=== PATIENT | female | born 1940 | race Caucasian/White ===

== ENCOUNTER → 2017-08-18 12:12 | Outpatient (CLI) | payer SELFPAY ==
--- NOTE | 2017-08-18 12:12 | DT_ITS ---
This patient was seen during an EMR downtime August 17, 2017 - August 24, 2017. This patient may have a combination of paper and electronic documentation or all paper documentation. All documentation is viewable within the e-chart portion of [facility] for each patient visit.
--- NOTE | 2017-08-18 12:30 | US_ITS ---
PROCEDURE: ULTRASOUND GUIDED PARACENTESIS CLINICAL HISTORY: Female, 76 years old. ASCITES CONSENT: The risks, benefits and alternatives to the procedure were explained to the patient, and the patient agreed to the procedure and signed the consent. SEDATION: Local Anesthesia STERILE BARRIER TECHNIQUE: The following sterile barrier precautions were used during the procedure: hand hygiene; use of 2% chlorhexidine aseptic; use of a cap, mask, sterile gown, sterile gloves, sterile full body drape, and a large sterile sheet. PROCEDURE/TECHNIQUE: The risks, benefits, and alternatives to the procedure were explained to patient, and the patient agreed to the procedure and signed a consent form for the procedure. TECHNIQUE: Under the ultrasound guidance using sterile technique and after infiltration of the skin and subcutaneous soft tissues with 10 mL of lidocaine 1% a 5 Tamazight drainage catheter is introduced in the lower part of the abdomen. 6600 mL of fluid were removed sample sent to lab for evaluation. The patient tolerated the procedure there was no immediate complication. FINDINGS: FLUID PRE-PROCEDURE There is posterior enhancement. The findings appear anechoic. There is no loculation. Volume measurement: 6600 ml. FLUID POST-PROCEDURE Amount of fluid drained: 6600 ml. US/Paracentesis with US IMPRESSION: Successful ultrasound-guided paracentesis. Electronically Signed: Lilo Manuel MD at 13:53 EDT Tel , Service support ,
== END ==
PROVIDERS: Family Provider Family Medicine; PCP Family Medicine; Visit Provider Internal Medicine Gastroenterology
DX: R18.8 Other ascites (principal)
CPT/HCPCS: 49083

== ENCOUNTER → 2017-10-21 14:29 | Outpatient (CLI) | payer SELFPAY ==
--- NOTE | 2017-10-21 14:47 | US_ITS ---
PROCEDURE: ULTRASOUND GUIDED PARACENTESIS CLINICAL HISTORY: Female, 77 years old. Ascites. CONSENT: Yes Time-Out Called: Yes. Consent form signed: Yes. PT-PTT Levels Checked: Yes. SEDATION: Local Anesthesia STERILE BARRIER TECHNIQUE: The following sterile barrier precautions were used during the procedure: hand hygiene; use of 2% chlorhexidine aseptic; use of sterile gloves and a large sterile sheet. PROCEDURE/TECHNIQUE: The risks, benefits and alternatives to the procedure were explained to patient, and the patient agreed to the procedure and signed a informed written and witnessed consent form for the procedure. TECHNIQUE: Under the ultrasound guidance using sterile technique and after infiltration of the skin and subcutaneous soft tissues with 10 mL of lidocaine 2%, a 5 Tamazight drainage catheter was introduced in the lower part of the abdomen. 7950 mL of fluid were removed. The patient tolerated the procedure there was no immediate complication. FLUID POST-PROCEDURE Amount of fluid drained: 7950 ml. US/Paracentesis with US IMPRESSION: Successful paracentesis as described. Electronically Signed: Paco Forman, at 18:01 EDT Tel , Service support ,
[2017-10-21 15:01] LABS: International Normalized Ratio 1.2
[2017-10-21 15:02] LABS: Partial Thromboplast Time 30.3 Seconds (24.1-36.2)
[2017-10-21 15:03] LABS: Platelet Count 89 K/mm3 (150-450)
[2017-10-21 16:00] VITALS: BP 124/73; PULSE 88; RESP 18; O2SAT 98
[2017-10-21 16:20] VITALS: BP 141/57; PULSE 89; RESP 18; O2SAT 97
[2017-10-21 16:35] VITALS: BP 127/73; PULSE 84; RESP 18; O2SAT 98
[2017-10-21 16:50] VITALS: BP 127/73; PULSE 88; RESP 16; O2SAT 97
[2017-10-21 17:05] VITALS: BP 141/56; PULSE 89; RESP 16; O2SAT 96
== END ==
PROVIDERS: Family Provider Family Medicine; PCP Family Medicine; Visit Provider Internal Medicine Gastroenterology
DX: R18.8 Other ascites (principal)
CPT/HCPCS: 36415; 49083; 85049; 85610; 85730

== ENCOUNTER → 2017-12-02 10:34 | Outpatient (CLI) | payer MEDICARE, SELFPAY ==
--- NOTE | 2017-12-02 10:38 | US_ITS ---
PROCEDURE: Ultrasound guided paracentesis. DATE OF EXAMINATION: December 02, 2017. INDICATION: Female, 77 years old. Ascites. PHYSICIAN: Florentino Barragan M.D. TECHNIQUE: The risks, benefits, and alternatives to the procedure were explained to the patient. The specific risks of bleeding, infection, and damage to bowel were detailed and accepted. Witnessed informed consent was obtained. The abdomen was ultrasonographically surveyed. An appropriate pocket of fluid was identified at the right lower quadrant. The skin were cleaned and prepped in the usual sterile fashion. Using ultrasound guidance, the peritoneal cavity was accessed with a 5-Dutch paracentesis needle/catheter system. The trocar was removed. A total of 8100 ml of kulwinder-colored fluid were removed from the peritoneal cavity. The catheter was removed and a sterile dressing was applied. The procedure was well tolerated. US/Paracentesis with US IMPRESSION: Ultrasound guided paracentesis. Electronically Signed: Florentino Barragan MD at 14:07 EDT Tel [phone], Service support ,
== END ==
PROVIDERS: Family Provider Family Medicine; PCP Family Medicine; Visit Provider Family Medicine
DX: R18.8 Other ascites (principal)
CPT/HCPCS: 49083

== ENCOUNTER → 2018-01-22 09:57 | Outpatient (CLI) | payer MEDICARE, SELFPAY ==
--- NOTE | 2018-01-22 10:07 | US_ITS ---
PROCEDURE: Ultrasound guided paracentesis. DATE OF EXAMINATION: January 22, 2018.. INDICATION: Female, 77 years old. Ascites. PHYSICIAN: Florentino Barragan M.D. TECHNIQUE: The risks, benefits, and alternatives to the procedure were explained to the patient. The specific risks of bleeding, infection, and damage to bowel were detailed and accepted. Witnessed informed consent was obtained. The abdomen was ultrasonographically surveyed. An appropriate pocket of fluid was identified at the right lower quadrant. The skin were cleaned and prepped in the usual sterile fashion. Using ultrasound guidance, the peritoneal cavity was accessed with a 5-Senegalese paracentesis needle/catheter system. The trocar was removed. A total of 6250 ml of kulwinder-colored fluid were removed from the peritoneal cavity. The catheter was removed and a sterile dressing was applied. The procedure was well tolerated. US/Paracentesis with US IMPRESSION: Ultrasound guided paracentesis. Electronically Signed: Florentino Barragan MD at 13:49 EST Tel [phone], Service support ,
[2018-01-22 10:39] VITALS: BP 151/62; PULSE 83; RESP 18; O2SAT 98; BMI 50.3
[2018-01-22 10:55] VITALS: BP 129/65; PULSE 85; RESP 18; O2SAT 96
== END ==
PROVIDERS: Family Provider Family Medicine; PCP Family Medicine; Referring Provider Family Medicine; Visit Provider Family Medicine
DX: R18.8 Other ascites (principal)
CPT/HCPCS: 49083

== ENCOUNTER → 2018-03-23 07:10 | Outpatient (CLI) | payer SELFPAY ==
--- NOTE | 2018-03-23 07:14 | US_ITS ---
PROCEDURE: Ultrasound guided paracentesis. DATE OF EXAMINATION: March 23, 2018. INDICATION: Female, 77 years old. Ascites. PHYSICIAN: Florentino Barragan M.D. TECHNIQUE: The risks, benefits, and alternatives to the procedure were explained to the patient. The specific risks of bleeding, infection, and damage to bowel were detailed and accepted. Witnessed informed consent was obtained. The abdomen was ultrasonographically surveyed. An appropriate pocket of fluid was identified at the right lower quadrant. The skin were cleaned and prepped in the usual sterile fashion. Using ultrasound guidance, the peritoneal cavity was accessed with a 5-Frisian paracentesis needle/catheter system. The trocar was removed. A total of 8950 ml of kulwinder-colored fluid were removed from the peritoneal cavity. The catheter was removed and a sterile dressing was applied. The procedure was well tolerated. US/Paracentesis with US IMPRESSION: Ultrasound guided paracentesis. Electronically Signed: Florentino Barragan MD at 10:43 EST Tel [phone], Service support ,
[2018-03-23 09:20] VITALS: BP 122/61; BP 133/77; BP 145/80; PULSE 91; PULSE 92; PULSE 94; RESP 18; O2SAT 95; O2SAT 96
== END ==
PROVIDERS: Family Provider Family Medicine; PCP Family Medicine; Referring Provider Family Medicine; Visit Provider Family Medicine
DX: R18.8 Other ascites (principal)
CPT/HCPCS: 49083

== ENCOUNTER → 2018-06-03 07:54 | Outpatient (CLI) | payer MEDICARE, SELFPAY ==
--- NOTE | 2018-06-03 07:58 | US_ITS ---
PROCEDURE: ULTRASOUND GUIDED PARACENTESIS CLINICAL HISTORY: Female, 77 years old. ASCITES CONSENT: The risks, benefits and alternatives to the procedure were explained to the patient, and the patient agreed to the procedure and signed the consent. SEDATION: Local Anesthesia STERILE BARRIER TECHNIQUE: The following sterile barrier precautions were used during the procedure: hand hygiene; use of 2% chlorhexidine aseptic; use of a cap, mask, sterile gown, sterile gloves, sterile full body drape, and a large sterile sheet. PROCEDURE/TECHNIQUE: The risks, benefits, and alternatives to the procedure were explained to patient, and the patient agreed to the procedure and signed a consent form for the procedure. TECHNIQUE: Under the ultrasound guidance using sterile technique and after infiltration of the skin and subcutaneous soft tissues with 10 mL of lidocaine 1% a 5 Hungarian drainage catheter is introduced in the lower part of the abdomen. 7550 mL of fluid were removed sample sent to lab for evaluation. The patient tolerated the procedure there was no immediate complication. FINDINGS: FLUID PRE-PROCEDURE There is posterior enhancement. The findings appear anechoic. There is no loculation. FLUID POST-PROCEDURE Amount of fluid drained: 7550 ml. US/Paracentesis with US IMPRESSION: Successful ultrasound-guided paracentesis. Electronically Signed: Lilo Manuel, at 12:24 EDT Tel , Service support ,
[2018-06-03 08:37] VITALS: BP 122/74; BP 132/65; BP 145/88; PULSE 94; PULSE 95; PULSE 98; RESP 16; RESP 18; O2SAT 93; O2SAT 94
== END ==
PROVIDERS: Family Provider Family Medicine; PCP Family Medicine; Referring Provider Family Medicine; Visit Provider Family Medicine
DX: R18.8 Other ascites (principal)
CPT/HCPCS: 49083

== ENCOUNTER → 2018-09-06 | Outpatient (CLI) | payer MEDICARE, SELFPAY ==
--- NOTE | 2018-09-06 14:48 | US_ITS ---
PROCEDURE: ULTRASOUND GUIDED PARACENTESIS CLINICAL HISTORY: Female, 78 years old. CONSENT: Time-Out Called: Yes. Consent form signed: Yes. PT-PTT Levels Checked: Yes. SEDATION: None TECHNIQUE: FINDINGS: FLUID PRE-PROCEDURE Under ultrasound guidance and following proper antiseptic preparation and local anesthesia a 6 Georgian draining catheter was inserted in the right lower quadrant, 9000ml of Edie color fluid aspirated. The patient tolerated the procedure well. US/Paracentesis with US IMPRESSION: Uneventful paracentesis Electronically Signed: Teo Garcia, at 8:54 EDT Tel , Service support ,
[2018-09-06 15:30] VITALS: BP 131/55; BP 142/66; BP 157/72; PULSE 97; PULSE 99; RESP 16; O2SAT 92; O2SAT 94
== END | disposition home or self-care (01) ==
PROVIDERS: Family Provider Family Medicine; PCP Family Medicine; Referring Provider Family Medicine; Visit Provider Family Medicine
DX: K74.60 Unspecified cirrhosis of liver (principal)
CPT/HCPCS: 49083

== ENCOUNTER → 2018-09-15 | Outpatient (CLI) | payer MEDICARE, SELFPAY ==
[2018-09-15 12:43] VITALS: BP 138/77; BP 139/67; BP 141/78; BP 146/84; BP 158/71; PULSE 87; PULSE 88; PULSE 90; PULSE 92; PULSE 94; RESP 18; O2SAT 94; O2SAT 98
--- NOTE | 2018-09-15 12:51 | US_ITS ---
PROCEDURE: Ultrasound guided paracentesis. DATE OF EXAMINATION: Right 2018. INDICATION: Female, 78 years old. Ascites. PHYSICIAN: Florentino Barragan M.D. TECHNIQUE: The risks, benefits, and alternatives to the procedure were explained to the patient. The specific risks of bleeding, infection, and damage to bowel were detailed and accepted. Witnessed informed consent was obtained. The abdomen was ultrasonographically surveyed. An appropriate pocket of fluid was identified at the right lower quadrant. The skin were cleaned and prepped in the usual sterile fashion. Using ultrasound guidance, the peritoneal cavity was accessed with a 5-Hebrew paracentesis needle/catheter system. The trocar was removed. A total of 8150 ml of kulwinder-colored fluid were removed from the peritoneal cavity. The catheter was removed and a sterile dressing was applied. The procedure was well tolerated. US/Paracentesis with US IMPRESSION: Ultrasound guided paracentesis. Electronically Signed: Florentino Barragan, at 14:47 EDT , Service support ,
--- NOTE | 2018-09-15 15:41 | NURSING ---
JANELLE ZAYAS CALLED [facility] TO ENSURE PT IS ABLE TO COME 09/24/18 AT 1015 FOR 1030 APPOINTMENT. MARY AT [facility] STATES SHE WILL MAKE SURE THAT PT HAS TRANSPORTATION.
== END | disposition home or self-care (01) ==
PROVIDERS: Family Provider Family Medicine; PCP Family Medicine; Referring Provider Family Medicine; Visit Provider Family Medicine
DX: K74.60 Unspecified cirrhosis of liver (principal)
CPT/HCPCS: 49083

== ENCOUNTER → 2018-09-24 | Outpatient (CLI) | payer MEDICARE, SELFPAY ==
--- NOTE | 2018-09-24 10:26 | US_ITS ---
PROCEDURE: Ultrasound guided paracentesis. DATE OF EXAMINATION: September 24, 2018. INDICATION: Female, 78 years old. Ascites. PHYSICIAN: Florentino Barragan M.D. TECHNIQUE: The risks, benefits, and alternatives to the procedure were explained to the patient. The specific risks of bleeding, infection, and damage to bowel were detailed and accepted. Witnessed informed consent was obtained. The abdomen was ultrasonographically surveyed. An appropriate pocket of fluid was identified at the right lower quadrant. The skin were cleaned and prepped in the usual sterile fashion. Using ultrasound guidance, the peritoneal cavity was accessed with a 5-Norwegian paracentesis needle/catheter system. The trocar was removed. A total of 5400 ml of kulwinder-colored fluid were removed from the peritoneal cavity. The catheter was removed and a sterile dressing was applied. The procedure was well tolerated. US/Paracentesis with US IMPRESSION: Ultrasound guided paracentesis. Electronically Signed: Florentino Barragan, at 12:13 EDT , Service support ,
[2018-09-24 11:31] VITALS: BP 127/67; BP 128/58; BP 129/67; PULSE 102; PULSE 112; PULSE 97; RESP 16; O2SAT 97; O2SAT 98
== END | disposition home or self-care (01) ==
LOC: US 10:22
PROVIDERS: Family Provider Family Medicine; PCP Family Medicine; Referring Provider Family Medicine; Visit Provider Family Medicine
DX: K74.60 Unspecified cirrhosis of liver (principal)
CPT/HCPCS: 49083

== ENCOUNTER → 2018-10-19 | Outpatient (CLI) | payer MEDICARE, SELFPAY ==
[2018-10-19 15:21] LABS: International Normalized Ratio 1.2; Prothrombin Time (Protime)PT. 14.6 SECONDS (11.7-14.9)
[2018-10-19 15:22] LABS: Partial Thromboplast Time 32.4 Seconds (24.1-36.2)
== END | disposition home or self-care (01) ==
LOC: US 14:59 → LAB 15:30
PROVIDERS: Family Provider Family Medicine; PCP Family Medicine; Referring Provider Family Medicine; Visit Provider Family Medicine
DX: K74.60 Unspecified cirrhosis of liver (principal)
CPT/HCPCS: 36415; 85610; 85730

== ENCOUNTER → 2018-10-20 | Outpatient (CLI) | payer MEDICARE, SELFPAY ==
--- NOTE | 2018-10-20 14:32 | US_ITS ---
PROCEDURE: Ultrasound guided paracentesis. DATE OF EXAMINATION: October 20, 2018.. INDICATION: Female, 78 years old. Ascites. PHYSICIAN: Florentino Barragan M.D. TECHNIQUE: The risks, benefits, and alternatives to the procedure were explained to the patient. The specific risks of bleeding, infection, and damage to bowel were detailed and accepted. Witnessed informed consent was obtained. The abdomen was ultrasonographically surveyed. An appropriate pocket of fluid was identified at the right lower quadrant. The skin were cleaned and prepped in the usual sterile fashion. Using ultrasound guidance, the peritoneal cavity was accessed with a 5-Chinese paracentesis needle/catheter system. The trocar was removed. A total of 9000 ml of kulwinder-colored fluid were removed from the peritoneal cavity. The catheter was removed and a sterile dressing was applied. The procedure was well tolerated. US/Paracentesis with US IMPRESSION: Ultrasound guided paracentesis. Electronically Signed: Florentino Barragan, at 8:22 EDT , Service support ,
[2018-10-20 15:38] VITALS: BP 131/60; BP 137/66; PULSE 95; RESP 16; O2SAT 98
== END | disposition home or self-care (01) ==
PROVIDERS: Family Provider Family Medicine; PCP Family Medicine; Referring Provider Family Medicine; Visit Provider Family Medicine
DX: K74.60 Unspecified cirrhosis of liver (principal)
CPT/HCPCS: 49083

== ENCOUNTER → 2018-11-11 | Outpatient (CLI) | payer MEDICARE, MEDICAID, SELFPAY ==
--- NOTE | 2018-11-11 12:28 | US_ITS ---
PROCEDURE: Ultrasound guided paracentesis. DATE OF EXAMINATION: November 11, 2018. INDICATION: Female, 78 years old. Ascites. PHYSICIAN: Florentino Barragan M.D. TECHNIQUE: The risks, benefits, and alternatives to the procedure were explained to the patient. The specific risks of bleeding, infection, and damage to bowel were detailed and accepted. Witnessed informed consent was obtained. The abdomen was ultrasonographically surveyed. An appropriate pocket of fluid was identified at the right lower quadrant. The skin were cleaned and prepped in the usual sterile fashion. Using ultrasound guidance, the peritoneal cavity was accessed with a 5-Telugu paracentesis needle/catheter system. The trocar was removed. A total of 9000 ml of kulwinder-colored fluid were removed from the peritoneal cavity. The catheter was removed and a sterile dressing was applied. The procedure was well tolerated. US/Paracentesis with US IMPRESSION: Ultrasound guided paracentesis. Electronically Signed: Florentino Barragan, at 13:57 EDT , Service support ,
[2018-11-11 14:01] VITALS: BP 136/78; BP 140/74; BP 153/93; PULSE 97; PULSE 99; RESP 16; RESP 18; O2SAT 100; O2SAT 98
== END | disposition home or self-care (01) ==
PROVIDERS: Family Provider Family Medicine; PCP Family Medicine; Referring Provider Family Medicine; Visit Provider Family Medicine
DX: K74.60 Unspecified cirrhosis of liver (principal)
CPT/HCPCS: 49083

== ENCOUNTER → 2018-11-22 13:02 | Outpatient (CLI) | payer MEDICARE, SELFPAY ==
--- NOTE | 2018-11-22 13:06 | US_ITS ---
PROCEDURE: Ultrasound guided paracentesis. DATE OF EXAMINATION: November 22, 2018. INDICATION: Female, 78 years old. Ascites. PHYSICIAN: Florentino Barragan M.D. TECHNIQUE: The risks, benefits, and alternatives to the procedure were explained to the patient. The specific risks of bleeding, infection, and damage to bowel were detailed and accepted. Witnessed informed consent was obtained. The abdomen was ultrasonographically surveyed. An appropriate pocket of fluid was identified at the right lower quadrant. The skin were cleaned and prepped in the usual sterile fashion. Using ultrasound guidance, the peritoneal cavity was accessed with a 5-Icelandic paracentesis needle/catheter system. The trocar was removed. A total of 7900 ml of kulwinder-colored fluid were removed from the peritoneal cavity. The catheter was removed and a sterile dressing was applied. The procedure was well tolerated. US/Paracentesis with US IMPRESSION: Ultrasound guided paracentesis. Electronically Signed: Florentino Barragan, at 15:06 EDT , Service support ,
[2018-11-22 13:51] VITALS: BP 128/63; BP 131/74; BP 132/67; BP 138/68; BP 139/62; BP 146/71; BP 150/60; PULSE 93; PULSE 94; PULSE 95; PULSE 97; RESP 16; RESP 18; O2SAT 100; O2SAT 96; O2SAT 99
== END ==
PROVIDERS: Family Provider Family Medicine; PCP Family Medicine; Referring Provider Family Medicine; Visit Provider Family Medicine
DX: K74.60 Unspecified cirrhosis of liver (principal)
CPT/HCPCS: 49083

== ENCOUNTER → 2018-12-08 14:10 | Outpatient (CLI) | payer MEDICARE, SELFPAY ==
--- NOTE | 2018-12-08 14:16 | US_ITS ---
PROCEDURE: Ultrasound guided paracentesis. DATE OF EXAMINATION: December 08, 2018. INDICATION: Female, 78 years old. Ascites. PHYSICIAN: Florentino Barragan M.D. TECHNIQUE: The risks, benefits, and alternatives to the procedure were explained to the patient. The specific risks of bleeding, infection, and damage to bowel were detailed and accepted. Witnessed informed consent was obtained. The abdomen was ultrasonographically surveyed. An appropriate pocket of fluid was identified at the right lower quadrant. The skin were cleaned and prepped in the usual sterile fashion. Using ultrasound guidance, the peritoneal cavity was accessed with a 5-Yemeni paracentesis needle/catheter system. The trocar was removed. A total of 7900 ml of kulwinder-colored fluid were removed from the peritoneal cavity. The catheter was removed and a sterile dressing was applied. The procedure was well tolerated. US/Paracentesis with US IMPRESSION: Ultrasound guided paracentesis. Electronically Signed: Florentino Barragan, at 15:52 EDT , Service support ,
[2018-12-08 15:49] VITALS: BP 103/63; BP 120/59; BP 123/87; PULSE 100; PULSE 101; RESP 16; O2SAT 100; O2SAT 98
== END ==
PROVIDERS: Family Provider Family Medicine; PCP Family Medicine; Referring Provider Family Medicine; Visit Provider Family Medicine
DX: K74.60 Unspecified cirrhosis of liver (principal)
CPT/HCPCS: 49083

== ENCOUNTER → 2018-12-15 10:09 | Outpatient (CLI) | payer SELFPAY ==
--- NOTE | 2018-12-15 10:11 | US_ITS ---
PROCEDURE: Ultrasound guided paracentesis. DATE OF EXAMINATION: December 15, 2018. INDICATION: Female, 78 years old. Ascites. PHYSICIAN: Florentino Barragan M.D. TECHNIQUE: The risks, benefits, and alternatives to the procedure were explained to the patient. The specific risks of bleeding, infection, and damage to bowel were detailed and accepted. Witnessed informed consent was obtained. The abdomen was ultrasonographically surveyed. An appropriate pocket of fluid was identified at the right lower quadrant. The skin were cleaned and prepped in the usual sterile fashion. Using ultrasound guidance, the peritoneal cavity was accessed with a 5-Macedonian paracentesis needle/catheter system. The trocar was removed. A total of 3750 ml of kulwinder-colored fluid were removed from the peritoneal cavity. The catheter was removed and a sterile dressing was applied. The procedure was well tolerated. US/Paracentesis with US IMPRESSION: Ultrasound guided paracentesis. Electronically Signed: Florentino Barragan, at 11:27 EDT , Service support ,
[2018-12-15 10:37] VITALS: BP 128/65; BP 138/55; PULSE 100; PULSE 101; RESP 18; O2SAT 98; O2SAT 99
== END ==
PROVIDERS: Family Provider Family Medicine; PCP Family Medicine; Referring Provider Family Medicine; Visit Provider Family Medicine
DX: K74.60 Unspecified cirrhosis of liver (principal)
CPT/HCPCS: 49083

== ENCOUNTER → 2018-12-22 10:37 | Outpatient (CLI) | payer SELFPAY ==
--- NOTE | 2018-12-22 10:40 | US_ITS ---
PROCEDURE: ULTRASOUND GUIDED PARACENTESIS CLINICAL HISTORY: Female, 78 years old. Reaccumulation of abdominal ascites for therapeutic paracentesis. CONSENT: Time-Out Called: Yes. Consent form signed: Yes. PT-PTT Levels Checked: Yes. SEDATION: None TECHNIQUE: The procedure was again explained to the patient. After this a skin site was marked with ultrasound guidance. A 5 Cambodian Yueh catheter was inserted into the largest pocket of ascites in the right lower quadrant. FINDINGS: FLUID PRE-PROCEDURE There is posterior enhancement. The findings appear anechoic. There is no loculation. Volume measurement: 5900 ml. Only a small amount of ascites remains. FLUID POST-PROCEDURE Amount of fluid drained: 5900 ml. US/Paracentesis with US IMPRESSION: 5900 cc of ascites was aspirated during this paracentesis. Electronically Signed: Rodrigo Lacey, at 15:55 EDT Tel , Service support ,
[2018-12-22 10:47] VITALS: BP 145/67; BP 146/71; BP 153/66; BP 153/69; PULSE 101; PULSE 103; PULSE 93; PULSE 98; RESP 14; RESP 16; O2SAT 100; O2SAT 98
== END ==
PROVIDERS: Family Provider Family Medicine; PCP Family Medicine; Referring Provider Family Medicine; Visit Provider Family Medicine
DX: K74.60 Unspecified cirrhosis of liver (principal)
CPT/HCPCS: 49083

== ENCOUNTER → 2018-12-29 10:21 | Outpatient (CLI) | payer SELFPAY ==
--- NOTE | 2018-12-29 10:30 | US_ITS ---
PROCEDURE: Ultrasound guided paracentesis. DATE OF EXAMINATION: December 29, 2018. INDICATION: Female, 78 years old. Ascites. PHYSICIAN: Florentino Barragan M.D. TECHNIQUE: The risks, benefits, and alternatives to the procedure were explained to the patient. The specific risks of bleeding, infection, and damage to bowel were detailed and accepted. Witnessed informed consent was obtained. The abdomen was ultrasonographically surveyed. An appropriate pocket of fluid was identified at the right lower quadrant. The skin were cleaned and prepped in the usual sterile fashion. Using ultrasound guidance, the peritoneal cavity was accessed with a 5-Micronesian paracentesis needle/catheter system. The trocar was removed. A total of 5200 ml of kulwinder-colored fluid were removed from the peritoneal cavity. The catheter was removed and a sterile dressing was applied. The procedure was well tolerated. US/Paracentesis with US IMPRESSION: Ultrasound guided paracentesis. Electronically Signed: Florentino Barragan, at 12:56 EDT , Service support ,
[2018-12-29 10:57] VITALS: BP 125/77; BP 135/74; BP 136/82; PULSE 103; PULSE 107; RESP 16; RESP 18; O2SAT 96; O2SAT 97; O2SAT 98
== END ==
PROVIDERS: Family Provider Family Medicine; PCP Family Medicine; Referring Provider Family Medicine; Visit Provider Family Medicine
DX: K74.60 Unspecified cirrhosis of liver (principal)
CPT/HCPCS: 49083

== ENCOUNTER → 2019-01-05 12:53 | Outpatient (CLI) | payer MEDICARE, SELFPAY ==
--- NOTE | 2019-01-05 12:56 | US_ITS ---
PROCEDURE: Ultrasound guided paracentesis. DATE OF EXAMINATION: January 05, 2019. INDICATION: Female, 78 years old. Ascites. PHYSICIAN: Florentino Barragan M.D. TECHNIQUE: The risks, benefits, and alternatives to the procedure were explained to the patient. The specific risks of bleeding, infection, and damage to bowel were detailed and accepted. Witnessed informed consent was obtained. The abdomen was ultrasonographically surveyed. An appropriate pocket of fluid was identified at the right lower quadrant. The skin were cleaned and prepped in the usual sterile fashion. Using ultrasound guidance, the peritoneal cavity was accessed with a 5-Palestinian paracentesis needle/catheter system. The trocar was removed. A total of 5300 ml of kulwinder-colored fluid were removed from the peritoneal cavity. The catheter was removed and a sterile dressing was applied. The procedure was well tolerated. US/Paracentesis with US IMPRESSION: Ultrasound guided paracentesis. Electronically Signed: Florentino Barragan, at 15:52 EDT , Service support ,
[2019-01-05 15:58] VITALS: BP 109/63; BP 118/65; BP 125/66; PULSE 87; PULSE 93; PULSE 95; RESP 16; O2SAT 100
== END ==
PROVIDERS: Family Provider Family Medicine; PCP Family Medicine; Referring Provider Family Medicine; Visit Provider Family Medicine
DX: K74.60 Unspecified cirrhosis of liver (principal)
CPT/HCPCS: 49083

== ENCOUNTER → 2019-01-12 14:56 | Outpatient (CLI) | payer MEDICARE, SELFPAY ==
--- NOTE | 2019-01-12 15:01 | US_ITS ---
PROCEDURE: Ultrasound guided paracentesis. DATE OF EXAMINATION: January 12, 2019.. INDICATION: Female, 78 years old. Ascites. PHYSICIAN: Florentino Barragan M.D. TECHNIQUE: The risks, benefits, and alternatives to the procedure were explained to the patient. The specific risks of bleeding, infection, and damage to bowel were detailed and accepted. Witnessed informed consent was obtained. The abdomen was ultrasonographically surveyed. An appropriate pocket of fluid was identified at the right lower quadrant. The skin were cleaned and prepped in the usual sterile fashion. Using ultrasound guidance, the peritoneal cavity was accessed with a 5-Georgian paracentesis needle/catheter system. The trocar was removed. A total of 4750 ml of kulwinder-colored fluid were removed from the peritoneal cavity. The catheter was removed and a sterile dressing was applied. The procedure was well tolerated. US/Paracentesis with US IMPRESSION: Ultrasound guided paracentesis. Electronically Signed: Florentino Barragan, at 16:03 EDT , Service support ,
[2019-01-12 16:36] VITALS: BP 103/68; BP 119/59; PULSE 101; PULSE 103; RESP 16; O2SAT 96; O2SAT 97
== END ==
PROVIDERS: Family Provider Family Medicine; PCP Family Medicine; Referring Provider Family Medicine; Visit Provider Family Medicine
DX: K74.60 Unspecified cirrhosis of liver (principal)
CPT/HCPCS: 49083

== ENCOUNTER → 2019-01-20 13:22 | Outpatient (CLI) | payer MEDICARE, SELFPAY ==
--- NOTE | 2019-01-20 13:25 | US_ITS ---
STUDY: ABDOMINAL ULTRASOUND -4 quadrants. REASON FOR VISIT: Female, 78 years old assessment for ascites and possible paracentesis. TECHNIQUE: Ultrasound evaluation of the 4 quadrants was performed with real-time and static coto-scale imaging. TECHNICAL QUALITY: Adequate. COMPARISON: None. FINDINGS: Only a small amount of fluid is seen in the left lower quadrant. No left lower quadrant cyst. At this time, there is 11.6 cm x 10.4 cm x 10.4 cm complex mass in the right adnexa. US/Abdomen Limited IMPRESSION: Not enough free fluid for safe paracentesis. Bilateral pelvic masses. Electronically Signed: Florentino Barragan, at 10:22 EST , Service support ,
[2019-01-20 13:56] VITALS: BP 130/75; PULSE 95; RESP 16; O2SAT 99
--- NOTE | 2019-01-20 14:39 | NURSING ---
REPORT CALLED TO [facility] NUR[facility].
== END ==
PROVIDERS: Family Provider Family Medicine; PCP Family Medicine; Referring Provider Family Medicine; Visit Provider Family Medicine
DX: K74.60 Unspecified cirrhosis of liver (principal)
CPT/HCPCS: 76705

== ENCOUNTER → 2019-01-26 12:35 | Outpatient (CLI) | payer SELFPAY ==
--- NOTE | 2019-01-26 12:47 | US_ITS ---
PROCEDURE: Ultrasound guided paracentesis. DATE OF EXAMINATION: January 26, 2019.. INDICATION: Female, 78 years old. Ascites. PHYSICIAN: Florentino Barragan M.D. TECHNIQUE: The risks, benefits, and alternatives to the procedure were explained to the patient. The specific risks of bleeding, infection, and damage to bowel were detailed and accepted. Witnessed informed consent was obtained. The abdomen was ultrasonographically surveyed. An appropriate pocket of fluid was identified at the right lower quadrant. The skin were cleaned and prepped in the usual sterile fashion. Using ultrasound guidance, the peritoneal cavity was accessed with a 5-Macedonian paracentesis needle/catheter system. The trocar was removed. A total of 6250 ml of kulwinder-colored fluid were removed from the peritoneal cavity. The catheter was removed and a sterile dressing was applied. The procedure was well tolerated. US/Paracentesis with US IMPRESSION: Ultrasound guided paracentesis. Electronically Signed: Florentino Barragan, at 14:12 EST , Service support ,
[2019-01-26 13:00] VITALS: BP 113/53; BP 117/63; BP 130/73; PULSE 86; PULSE 87; PULSE 88; RESP 14; RESP 16; O2SAT 98; O2SAT 99
== END ==
PROVIDERS: Family Provider Family Medicine; PCP Family Medicine; Referring Provider Family Medicine; Visit Provider Family Medicine
DX: K74.60 Unspecified cirrhosis of liver (principal)
CPT/HCPCS: 49083

== ENCOUNTER → 2019-02-02 12:15 | Outpatient (CLI) | payer SELFPAY ==
--- NOTE | 2019-02-02 12:19 | US_ITS ---
PROCEDURE: Ultrasound guided paracentesis. DATE OF EXAMINATION: February 02, 2019. INDICATION: Female, 78 years old. Ascites. PHYSICIAN: Florentino Barragan M.D. TECHNIQUE: The risks, benefits, and alternatives to the procedure were explained to the patient. The specific risks of bleeding, infection, and damage to bowel were detailed and accepted. Witnessed informed consent was obtained. The abdomen was ultrasonographically surveyed. An appropriate pocket of fluid was identified at the right lower quadrant. The skin were cleaned and prepped in the usual sterile fashion. Using ultrasound guidance, the peritoneal cavity was accessed with a 5-Uruguayan paracentesis needle/catheter system. The trocar was removed. A total of 5750 ml of kulwinder-colored fluid were removed from the peritoneal cavity. The catheter was removed and a sterile dressing was applied. The procedure was well tolerated. US/Paracentesis with US IMPRESSION: Ultrasound guided paracentesis. Electronically Signed: Florentino Barragan, at 14:22 EST , Service support ,
[2019-02-02 13:33] VITALS: BP 106/51; BP 114/54; BP 116/53; PULSE 75; PULSE 76; PULSE 78; RESP 16; O2SAT 100; O2SAT 99
== END ==
PROVIDERS: Family Provider Family Medicine; PCP Family Medicine; Referring Provider Family Medicine; Visit Provider Family Medicine
DX: K74.60 Unspecified cirrhosis of liver (principal)
CPT/HCPCS: 49083

== ENCOUNTER → 2019-02-09 12:16 | Outpatient (CLI) | payer SELFPAY ==
--- NOTE | 2019-02-09 12:20 | US_ITS ---
PROCEDURE: ULTRASOUND GUIDED PARACENTESIS CLINICAL HISTORY: Female, 78 years old. CONSENT: Time-Out Called: Yes. Consent form signed: Yes. PT-PTT Levels Checked: Yes. SEDATION: None TECHNIQUE: Under ultrasound guidance and following appropriate antiseptic preparation and local anesthesia, a 6 Cymro draining catheter was inserted in the right flank. 6000 cc of milky yellow fluid aspirated. The patient tolerated the procedure well. US/Paracentesis with US IMPRESSION: Uneventful paracentesis. Electronically Signed: Anacruz Jose, at 14:26 EST Tel , Service support ,
[2019-02-09 13:30] VITALS: BP 112/61; BP 119/35; BP 99/45; PULSE 77; PULSE 78; PULSE 82; RESP 18; O2SAT 100; O2SAT 98; O2SAT 99
== END ==
PROVIDERS: Family Provider Family Medicine; PCP Family Medicine; Referring Provider Family Medicine; Visit Provider Family Medicine
DX: K74.60 Unspecified cirrhosis of liver (principal)
CPT/HCPCS: 49083

== ENCOUNTER → 2019-02-17 13:24 | Outpatient (CLI) | payer SELFPAY ==
--- NOTE | 2019-02-17 13:27 | US_ITS ---
PROCEDURE: Ultrasound guided paracentesis. DATE OF EXAMINATION: February 17, 2019. INDICATION: Female, 78 years old. Ascites. PHYSICIAN: Florentino Barragan M.D. TECHNIQUE: The risks, benefits, and alternatives to the procedure were explained to the patient. The specific risks of bleeding, infection, and damage to bowel were detailed and accepted. Witnessed informed consent was obtained. The abdomen was ultrasonographically surveyed. An appropriate pocket of fluid was identified at the right lower quadrant. The skin were cleaned and prepped in the usual sterile fashion. Using ultrasound guidance, the peritoneal cavity was accessed with a 5-Citizen Of [place] paracentesis needle/catheter system. The trocar was removed. A total of 5750 ml of kulwinder-colored fluid were removed from the peritoneal cavity. The catheter was removed and a sterile dressing was applied. The procedure was well tolerated. US/Paracentesis with US IMPRESSION: Ultrasound guided paracentesis. Electronically Signed: Florentino Barragan, at 15:10 EST , Service support ,
[2019-02-17 13:54] VITALS: BP 105/64; BP 107/57; BP 129/67; PULSE 84; RESP 14; RESP 16; RESP 18; O2SAT 100; O2SAT 96
--- NOTE | 2019-02-17 14:50 | NURSING ---
REPORT CALLED TO AMIE, NURSE AT [facility].
== END ==
PROVIDERS: Family Provider Family Medicine; PCP Family Medicine; Referring Provider Family Medicine; Visit Provider Family Medicine
DX: K74.60 Unspecified cirrhosis of liver (principal)
CPT/HCPCS: 49083

== ENCOUNTER → 2019-02-24 08:23 | Outpatient (CLI) | payer SELFPAY ==
--- NOTE | 2019-02-24 08:25 | US_ITS ---
PROCEDURE: Ultrasound guided paracentesis. DATE OF EXAMINATION: February 24, 2019. INDICATION: Female, 78 years old. Ascites. PHYSICIAN: Florentino Barragan M.D. TECHNIQUE: The risks, benefits, and alternatives to the procedure were explained to the patient. The specific risks of bleeding, infection, and damage to bowel were detailed and accepted. Witnessed informed consent was obtained. The abdomen was ultrasonographically surveyed. An appropriate pocket of fluid was identified at the right lower quadrant. The skin were cleaned and prepped in the usual sterile fashion. Using ultrasound guidance, the peritoneal cavity was accessed with a 5-[place] paracentesis needle/catheter system. The trocar was removed. A total of 7650 ml of kulwinder-colored fluid were removed from the peritoneal cavity. The catheter was removed and a sterile dressing was applied. The procedure was well tolerated. US/Paracentesis with US IMPRESSION: Ultrasound guided paracentesis. Electronically Signed: Florentino Barragan, at 9:46 EST , Service support ,
[2019-02-24 08:51] VITALS: BP 104/59; BP 119/56; BP 125/49; PULSE 85; PULSE 88; PULSE 89; RESP 18; O2SAT 100; O2SAT 95; O2SAT 97
== END ==
PROVIDERS: Family Provider Family Medicine; PCP Family Medicine; Referring Provider Family Medicine; Visit Provider Family Medicine
DX: R18.8 Other ascites (principal)
CPT/HCPCS: 49083

== ENCOUNTER → 2019-03-03 12:15 | Outpatient (CLI) | payer SELFPAY ==
--- NOTE | 2019-03-03 12:16 | US_ITS ---
PROCEDURE: Ultrasound guided paracentesis. DATE OF EXAMINATION: March 03, 2019. INDICATION: Female, 78 years old. Ascites. PHYSICIAN: Florentino Barragan M.D. TECHNIQUE: The risks, benefits, and alternatives to the procedure were explained to the patient. The specific risks of bleeding, infection, and damage to bowel were detailed and accepted. Witnessed informed consent was obtained. The abdomen was ultrasonographically surveyed. An appropriate pocket of fluid was identified at the right lower quadrant. The skin were cleaned and prepped in the usual sterile fashion. Using ultrasound guidance, the peritoneal cavity was accessed with a 5-Citizen Of [place] paracentesis needle/catheter system. The trocar was removed. A total of 8000 ml of kulwinder-colored fluid were removed from the peritoneal cavity. The catheter was removed and a sterile dressing was applied. The procedure was well tolerated. US/Paracentesis with US IMPRESSION: Ultrasound guided paracentesis. Electronically Signed: Florentino Braragan, at 13:39 EST , Service support ,
[2019-03-03 12:35] VITALS: BP 122/49; BP 124/60; BP 125/70; PULSE 82; PULSE 86; PULSE 87; RESP 16; O2SAT 96; O2SAT 97; O2SAT 98
== END ==
PROVIDERS: Family Provider Family Medicine; PCP Family Medicine; Referring Provider Family Medicine; Visit Provider Family Medicine
DX: R18.8 Other ascites (principal)
CPT/HCPCS: 49083